=== PATIENT | male | born 1970 | race Caucasian/White ===

== ENCOUNTER 2020-07-06 12:22 | Outpatient (CLI) | payer OTHER ==
[2020-07-06 15:34] LABS: BASOPHILS # (AUTO) 0.1 10^3/uL (0.0-0.1); EOSINOPHILS # (AUTO) 0.5 10^3/uL (0.0-0.7); EOSINOPHILS % (AUTO) 8.1 %; HGB - HEMOGLOBIN 16.1 g/dL (14.0-18.0); LYMPHOCYTES # (AUTO) 1.5 10^3/uL (1.5-3.5); LYMPHOCYTES % (AUTO) 26.6 %; MEAN CORPUSCULAR HEMOGLOBIN 31.5 pg (27.0-31.0); MEAN CORPUSCULAR HGB CONC 32.9 g/dL (32.0-36.0); MEAN CORPUSCULAR VOLUME 95.7 fL (80.0-94.0); MEAN PLATELET VOLUME 11.7 fL (7.4-11.4); MONOCYTES # (AUTO) 0.9 10^3/uL (0.0-1.0); MONOCYTES % (AUTO) 14.7 %; NEUTROPHILS # (AUTO) 2.9 10^3/uL (1.5-6.6); NEUTROPHILS % (AUTO) 49.3 %; PLT - PLATELET COUNT 309 10^3/uL (130-450); RED BLOOD COUNT 5.11 10^6/uL (4.70-6.10); RED CELL DISTRIBUTION WIDTH 12.9 % (12.0-15.0); WHITE BLOOD COUNT 5.8 x10^3/uL (4.8-10.8)
[2020-07-06 16:05] LABS: CALCIUM 9.6 mg/dL (8.5-10.3); CREATININE 0.9 mg/dL (0.6-1.2)
[2020-07-06 18:42] LABS: HEMOGLOBIN A1c% 5.8 % (4.27-6.07)
== END 2020-07-06 12:23 | disposition home or self-care (01) ==
LOC: LAB.S 12:22
PROVIDERS: ATTEND Urology
DX: Z01.818 Encounter for other preprocedural examination (principal)
CPT/HCPCS: 36415; 80048; 83036; 85025; 85610; 85730; 87086

== ENCOUNTER 2020-08-21 12:31 | Outpatient (CLI) | payer OTHER | END 2020-08-21 12:32 | disposition home or self-care (01) | LOC: COV 12:31 | PROVIDERS: ATTEND Urology | DX: Z01.818 Encounter for other preprocedural examination (principal); Z20.828 Contact with and (suspected) exposure to other viral communicable diseases ==

== ENCOUNTER 2020-11-28 15:50 | Outpatient (CLI) | payer MEDICAID, OTHER ==
--- NOTE | 2020-11-28 16:23 | SLEEP CARE CONSULTATION ---
Information from patient questionnaire entered by Zeus Velasquez. I have reviewed and concur with the information entered by Zeus Velasquez. This document represents the service I personally performed and the decisions made by me, Linda Liz ARNP. History of Present Illness Service Date and Time: 11/28/2020 1550 Reason for Visit: New patient Chief Complaint: reports: Unrefreshed sleep, Snoring, Excessive daytime sleepiness, Observed pauses in breathing, Fatigue, Frequent awakenings at night Date of Onset: 10 + years Usual bedtime: 9:30 Time it takes to fall asleep: 1 hour Snores at night: Yes Observed to quit breathing while asleep: Yes Sleeps alone due to snoring: Yes Number of times waking at night: 1-3 Reasons for waking at night: reports: Snoring, Other (not sure) Toss, Turn, or Twitch while sleeping: No Recalls having dreams: No Usually gets out of bed at: 8 AM Feels refreshed in the morning: No Morning headache: Yes (3-4 times a week, last until had some ibuprofen/coffee, about an hour) Sleepy or fatigued during the day: Yes Ever fallen asleep while driving: No Takes day naps: No Dreams during day naps: Yes Prior sleep studies: No Additional HPI information: I had the pleasure of seeing NAYANA JUARES today regarding the possibility of him having a sleep disorder. His current complaints are unrefreshed sleep, snoring, observed pauses in breathing, frequent night awakenings, excessive daytime sleepiness, and fatigue. His has described snoring, stopping breathing and gasping in his sleep. He wakes up every morning he is waking up fatigued. He has to sleep in a separate room because his snore is so loud. - Parasomnia Symptoms Ever been unable to move upon waking from sleep: No Walks in sleep: No Talks in sleep: No Ever acted out dreams in sleep: No Ever felt weak in the knees when startled or emotional: No Bothered by creepy, crawly, restless sensations in legs: No Problems with memory or concentration: Yes (both) Subjective Initial [place] Sleepiness Scale score: 5 (in 2020) Past Medical History Past Medical History: reports: Depression, Mood disorder (bipolar), Attention deficit Social History The patient's occupation is a NOT EMPLOYED. Patient is and lives in [place]. Have you smoked in the past 12 months: No Cigarettes per day (20/pack): 20 Years of smokin Quit date: 1997 Smoking Pack Years: 10.0 Alcohol use: Yes Alcohol amount and frequency: 3 drinks daily but now zero Caffeine use: Yes Caffeine amount and frequency: 2 cups coffee daily Family History Family history of sleep disordered breathing: No Allergies and Home Medications Drug allergies reviewed: Yes (NKDA) Home medication list reviewed: Yes Allergy and home medication list: Escitalopram Review of Systems Weight gain over past 5 years: 10 Cardiovascular: denies: high blood pressure Gastrointestinal: denies: heartburn Neurological: reports: headaches. denies: seizure, head trauma Psychiatric: reports: depression, mood disorder Ear/Nose/Throat: denies: nasal congestion, dry mouth/throat, tonsillectomy, wisdom teeth removed Immunologic: denies: allergies to food or environment Physical Exam Blood Pressure: 133/87 Cuff size: wrist Heart Rate: 72 O2 Saturation: 97 Height: 6 ft 1 in Weight: 204 lb (with shoes/clothes) Body Mass Index: 26.9 BMI Classification: Overweight Neck circumference: 15.25 (inches) Nostrils: patent to airflow Turbinates: swollen Mouth and throat: narrow oropharynx Soft palate: long Hard palate: normal Uvula: normal Uvula visualization: 100% Mallampati Class I Tongue: normal in size Tonsils: small Neck: normal w/o lymphadenopathy or thyromegaly Heart: regular rate and rhythm Lungs: clear bilaterally Impression and Plan 1. Suspected Obstructive Sleep Apnea-Hypopnea Syndrome, as suggested by a history of loud and irregular snoring, observed cessation of breath while asleep, gasping or choking in sleep, morning headache, frequent awakening during the night, unrefreshed sleep, cognitive impairment, and excessive daytime sleepiness. Narrow oropharynx and obesity are common predisposing factors for obstructive sleep apnea-hypopnea syndrome. I recommend proceeding to polysomnography to confirm the diagnosis and to assess severity. If the patient has significant sleep disordered breathing, a manual CPAP titration study will also be performed to find the optimal treatment pressure. I informed the patient of what the sleep studies involve and after some discussion, obtained agreement to proceed. The pathophysiology of obstructive sleep apnea-hypopnea syndrome was discussed with the patient and health risks of cardiovascular and cerebrovascular disease if not treated. AASM brochure for obstructive sleep apnea-hypopnea syndrome given and reviewed. Risks of drowsy driving discussed in detail and patient advised to avoid long distance driving and to machine puller over at the first sign of drowsiness. Patient agreed to plan. * Schedule polysomnography +- manual CPAP titration study and return in 1-2 w eeks after the study to discuss result and initiate therapy. * Avoid long distance driving or driving when feeling sleepy. * Avoid alcohol, sedative and muscle relaxant around bedtime. * Attempt to lose weight. * Review instructions provided by trained office staff on how to prepare for the sleep study. * Return for follow-up after sleep study completed. Counseling Topics: Weight loss health impact Visit Type: In Office Time Spent with Patient (minutes): 30 Provider Statement: I spent 100% of the Face to Face Visit with the patient with greater than 50% spent counseling the patient and coordination of care.
[2020-11-28 16:25] VITALS: BP 133/87
== END 2020-11-28 15:51 | disposition home or self-care (01) ==
LOC: SC 15:50
PROVIDERS: ATTEND Nurse Practitioner Family
DX: G47.10 Hypersomnia, unspecified (principal); R06.81 Apnea, not elsewhere classified; G47.8 Other sleep disorders; R51.9 Headache, unspecified; R06.83 Snoring; E66.3 Overweight; Z68.26 Body mass index [BMI] 26.0-26.9, adult; Z87.891 Personal history of nicotine dependence
CPT/HCPCS: 99203; 99212

== ENCOUNTER 2021-01-03 16:06 | Outpatient (CLI) | payer MEDICAID | END 2021-01-03 16:07 | disposition home or self-care (01) | LOC: SC 16:06 | PROVIDERS: ATTEND Nurse Practitioner Family | DX: G47.33 Obstructive sleep apnea (adult) (pediatric) (principal); E66.9 Obesity, unspecified; Z68.26 Body mass index [BMI] 26.0-26.9, adult | CPT/HCPCS: 95806 ==

== ENCOUNTER 2021-01-11 15:32 | Outpatient (CLI) | payer MEDICAID ==
--- NOTE | 2021-01-11 15:46 | SLEEP CARE CONSULTATION ---
Information from patient questionnaire entered by Zeus Velasquez. I have reviewed and concur with the information entered by Zeus Velasquez. This document represents the service I personally performed and the decisions made by , Linda Liz ARNP. History of Present Illness Service Date and Time: 01/11/2021 1520 Initial [place] Sleepiness Scale score: 5 (in 2020) Current [place] Sleepiness Scale score: 5 Additional HPI information: NAYANA JUARES returns via Telehealth visit for follow up and results of the recently performed home sleep study. I explained the pathophysiology behind obstructive sleep apnea. We then spent quite a bit of time discussing different treatment options. For mild obstructive sleep apnea, surgery and oral appliance are alternatives to nasal CPAP therapy but in moderate or severe cases, nasal CPAP is the most effective and reliable treatment. After some discussion, the patient opted to go with the nasal CPAP therapy. Nasal autoCPAP set at 4-15 cmH20 will be ordered with rationale explained. A manual titration study will be ordered if unable to find optimal pressure with office adjustments. I explained how CPAP machine works and what to expect when using the machine. Using CPAP every night in order to get used to it was emphasized. Patient advised to put CPAP mask on before getting into bed so as not to fall asleep without CPAP. To assist acclimation to CPAP use, it could also be used for a short time during day while reading or watching TV. The patient was instructed to call the CPAP supplier to discuss any mechanical problem that may occur. If the mask given is uncomfortable or is difficult to keep on through the night even with adjustment, contact the CPAP supplier as many will replace with another mask style if notified before 30 days. If snoring or perceives is not getting enough air or too much air from the machine, notify this office. AASM patient education PAP tips reviewed and will be sent to patient. Patient counseled not drink alcohol less than 4 hours before bedtime as it can increase snoring and apnea. Patient was cautioned about risks of drowsy driving until sleepiness symptoms resolve. Sleep Study - Results Type of Sleep Study: Home sleep study Prior sleep studies: No Polysomnography/Home Sleep Study results: Physician Impression: The quality of the study is good. The length of the study is adequate (> 240 minutes). Please also see the tabulated and graphic data. 1. Obstructive Sleep Apnea-Hypopnea (ICD-10 G47.33), mild, with an AHI of 8.6/hr and todd SaO2 of 87%. During the study, the patient had 45 apneas (45 obstructive, 0 central, 0 mixed) and 35 hypopneas. The longest episode lasted 42.5 seconds. The respiratory events occurred independently of sleep stage and body position (supine AHI was 6.2 and non-supine, 9.31). 2. Hypoxemia (ICD-10 R09.02), mild, with the lowest oxygen saturation of 87 % and 2.0 minutes with SaO2 under 90%. Baseline oxygen saturation was normal (Average oxygen saturation was 93%). Allergies and Home Medications Home medication list reviewed: Yes (no changes) Review of Systems Review of systems same as previous: Yes (no changes) Physical Exam Vital signs obtained and entered by: Telehealth visit to limit exposure during Covid pandemic Height: 6 ft 1 in Impression and Plan 1. Obstructive Sleep Apnea-Hypopnea Syndrome, mild, with lowest oxygen saturation of 87%. Obviously this is the cause of the patients symptoms of unrefreshed sleep, and excessive daytime sleepiness. Positive pressure therapy could benefit depression, bipolar and attention deficit disorder. As mentioned above, the patient will be started on nasal autoCPAP therapy with pressure set at 4-15 cmH2O. A manual titration study will be completed if unable to find optimal treatment pressure with office adjustments. Compliance guidelines also reviewed. A copy of compliance guidelines will be given for reference at check out. * Nasal auto CPAP therapy, pressure at 4-15 cm H2O. * Attempt to lose weight. * Avoid alcohol consumption near bedtime. * Avoid supine sleep until using CPAP. * The patient is again cautioned about driving until sleepiness completely resolves. * Return one month after CPAP obtained. I will assess response to therapy and compliance at that time. Counseling Topics: Weight loss health impact Visit Type: Telehealth Video Video Type: VSee Patient Location: Home Location of Provider: Office Patient agrees and consents to this telehealth visit type: Yes Patient agrees to have their insurance billed: Yes Time Spent with Patient (minutes): 23 Provider Statement: I spent 100% of the Telehealth Video Call with the patient with greater than 50% spent counseling the patient and coordination of care.
== END 2021-01-11 15:33 | disposition home or self-care (01) ==
LOC: SC 15:32
PROVIDERS: ATTEND Nurse Practitioner Family
DX: G47.33 Obstructive sleep apnea (adult) (pediatric) (principal)

== ENCOUNTER 2021-08-24 14:08 | Outpatient (CLI) | payer MEDICAID ==
[2021-08-24 19:58] LABS: BASOPHILS # (AUTO) 0.1 10^3/uL (0.0-0.1); BASOPHILS % (AUTO) 0.9 %; EOSINOPHILS # (AUTO) 0.3 10^3/uL (0.0-0.7); EOSINOPHILS % (AUTO) 4.7 %; HGB - HEMOGLOBIN 17.1 g/dL (14.0-18.0); LYMPHOCYTES # (AUTO) 1.3 10^3/uL (1.5-3.5); LYMPHOCYTES % (AUTO) 19.8 %; MEAN CORPUSCULAR HEMOGLOBIN 31.8 pg (27.0-31.0); MEAN CORPUSCULAR HGB CONC 32.9 g/dL (32.0-36.0); MEAN CORPUSCULAR VOLUME 96.7 fL (80.0-94.0); MEAN PLATELET VOLUME 10.7 fL (7.4-11.4); MONOCYTES % (AUTO) 15.3 %; NEUTROPHILS # (AUTO) 3.7 10^3/uL (1.5-6.6); NEUTROPHILS % (AUTO) 58.7 %; PLT - PLATELET COUNT 442 10^3/uL (130-450); RED BLOOD COUNT 5.38 10^6/uL (4.70-6.10); RED CELL DISTRIBUTION WIDTH 12.5 % (12.0-15.0); WHITE BLOOD COUNT 6.4 x10^3/uL (4.8-10.8)
[2021-08-24 20:10] LABS: CALCIUM 9.9 mg/dL (8.5-10.3); CREATININE 1.1 mg/dL (0.6-1.2); POTASSIUM 4.7 mmol/L (3.5-5.0)
== END 2021-08-24 14:09 | disposition home or self-care (01) ==
LOC: LAB.S 14:08
PROVIDERS: ATTEND Urology
DX: T83.4 Mechanical complication of other prosthetic devices, implants and grafts of genital tract (principal)
CPT/HCPCS: 36415; 80048; 85025; 87086

== ENCOUNTER 2023-04-30 13:49 | Outpatient (CLI) | payer MEDICAID ==
--- NOTE | 2023-04-30 13:43 | SLEEP CARE CONSULTATION ---
Information from patient questionnaire entered by Ofelia Moreno. I have reviewed and concur with the information entered by Ofelia Moreno. This document represents the service I personally performed and the decisions made by me, Linda Liz ARNP. History of Present Illness Service Date and Time: 04/30/2023 1349 Previous diagnosis: Mild, Obstructive Sleep Apnea-Hypopnea Syndrome AHI: 8.6 (2020) Reason for follow up: annual (LAST SEEN 04/2021) Equipment type: CPAP ([facility] Dreamstation; s/u 01/2021) Equipment obtained from: [employer] (getting supplies) Mask style: Full face Mask brand: Resmed (AirFit [id number]) Backup mask available: No (will keep old mask when replaced) Prior sleep studies: No Type of Sleep Study: Home sleep study HPI additional information: NAYANA JUARES was diagnosed to have mild, AHI 8.6, obstructive sleep apnea-hypo pnea syndrome and returns via video telehealth visit today for CPAP therapy annual follow-up. Sleep Study - Results Type of Sleep Study: Home sleep study Prior sleep studies: No CPAP Compliance Data - Data Reviewed with Patient Average duration of nightly device use: 1 hours 49 mins Compliance rate %: 0.6 Current pressure setting (cmH2O): 4.5-19.5 (mean 5.5, avg 8, max 8.5) Average residual AHI: 4.2 Subjective Patient concerns: reports: aerophagia, condensation in mask/hose. denies: mask discomfort, air blowing in eyes, mask leak noise, nasal congestion, dry mouth, nose, throat, epistaxis Observed to snore while using device: Yes Current pressure setting perceived as: unsure On therapy, patient: reports: other (not yet). denies: drowsiness while driving Initial [place] Sleepiness Scale score: 5 (in 2020) Current [place] Sleepiness Scale score: 1 (04/30/23) Allergies and Home Medications Known drug allergies: No Drug allergies reviewed: Yes Home medication list reviewed: Yes (methyphenidate) Review of Systems Review of systems same as previous: Yes (no changes) Physical Exam Vital signs obtained and entered by: OFELIA Reza MA Height: 6 ft 1 in (PER PT) Weight: 165 lb (PER PT) Body Mass Index: 21.7 BMI Classification: Normal Impression and Plan 1. Obstructive Sleep Apnea-Hypopnea Syndrome, mild, with poor treatment compliance and good apnea control. He has not been consistently using his CPAP because he felt the pressure was too high. He has had some aerophagia but feels most of the bloating is other GI issues. He thinks the pressure could be higher when starting his machine. The patients pressure will be changed to autoCPAP 7-9 cmH20 to reflect pressure being used. Patient advised to contact me if pressure change is uncomfortable so that it can be adjusted. Goals for apnea control discussed. I informed the patient that [employer] has a recall on several devices like the patients machine. Patient was encouraged to register his device online with [email or web address] for the recall to see if it is affected. If the device is affected he should start a claim. Patient denies any black particles seen in machine or hoses, any unusual odors coming from device. Patient has not experienced any physical symptoms such as upper airway irritation, headache, skin or eye irritation, asthma, nausea/vomiting, difficulty breathing or chest pain. If patient is not able to sleep due to waking up choking, gasping for air or other respiratory distress that they may decide to continue using it until it is either replaced or repaired. Patient has decided to continue using CPAP and try to get it replaced by [facility]. I will update prescription for supplies after the next appointment to see if he can increase compliance with CPAP. Patient voiced understanding and agreement with plan. Patient's apnea severity and rationale for treatment to reduce apnea, improve sleep quality and reduce cardiovascular and cerebrovascular events was reviewed. I also reviewed the benefit of consistent device use of CPAP for depression, mood disorder (bipolar) and attention deficit. * Change auto CPAP pressure to 7-9 cmH2O * Notify me if snoring with mask or feeling that the pressure is too much or too little * Attempt to lose weight * Call this office if any problems using CPAP * Return for follow up in 1-2 months, or sooner if concerns arise Counseling Topics: Spare mask Visit Type: Telehealth Video Video Type: Doximity Patient Location: Home Location of Provider: Office Patient agrees and consents to this telehealth visit type: Yes Patient agrees to have their insurance billed: Yes Time Spent with Patient (minutes): 25 Provider Statement: I spent 100% of the Telehealth Video Call with the patient with greater than 50% spent counseling the patient and coordination of care.
== END 2023-04-30 13:50 | disposition home or self-care (01) ==
LOC: SC 13:49
PROVIDERS: ATTEND Nurse Practitioner Family
DX: G47.33 Obstructive sleep apnea (adult) (pediatric) (principal)
CPT/HCPCS: 99212

== ENCOUNTER 2023-09-10 09:58 | Outpatient (CLI) | payer MEDICAID ==
[2023-09-10 14:47] LABS: BASOPHILS % (AUTO) 0.7 %; EOSINOPHILS # (AUTO) 0.7 10^3/uL (0.0-0.7); EOSINOPHILS % (AUTO) 11.9 %; HCT - HEMATOCRIT 48.8 % (42.0-52.0); HGB - HEMOGLOBIN 15.9 g/dL (14.0-18.0); LYMPHOCYTES # (AUTO) 1.5 10^3/uL (1.5-3.5); LYMPHOCYTES % (AUTO) 28.1 %; MEAN CORPUSCULAR HEMOGLOBIN 30.8 pg (27.0-31.0); MEAN CORPUSCULAR HGB CONC 32.6 g/dL (32.0-36.0); MEAN CORPUSCULAR VOLUME 94.4 fL (80.0-94.0); MEAN PLATELET VOLUME 10.7 fL (7.4-11.4); MONOCYTES # (AUTO) 0.5 10^3/uL (0.0-1.0); MONOCYTES % (AUTO) 9.4 %; NEUTROPHILS # (AUTO) 2.7 10^3/uL (1.5-6.6); NEUTROPHILS % (AUTO) 49.3 %; PLT - PLATELET COUNT 385 10^3/uL (130-450); RED BLOOD COUNT 5.17 10^6/uL (4.70-6.10); RED CELL DISTRIBUTION WIDTH 12.9 % (12.0-15.0); WHITE BLOOD COUNT 5.5 x10^3/uL (4.8-10.8)
[2023-09-10 15:33] LABS: CALCIUM 9.7 mg/dL (8.5-10.3); CREATININE 1.1 mg/dL (0.6-1.3)
[2023-09-10 15:44] LABS: THYROID STIMULATING HORMONE 1.31 uIU/mL (0.34-5.60)
[2023-09-10 16:00] LABS: LITHIUM < 0.10 mmol/L
== END 2023-09-10 09:59 | disposition home or self-care (01) ==
LOC: LAB.S 09:58
PROVIDERS: ATTEND Nurse Practitioner Psychiatric/Mental Health
DX: F31.81 Bipolar II disorder (principal); F90.9 Attention-deficit hyperactivity disorder, unspecified type
CPT/HCPCS: 36415; 80178; 81599; 82310; 82565; 84443; 85025